=== PATIENT | male | born 1990 | race Caucasian/White ===

== ENCOUNTER 2025-11-02 23:30 | Emergency (ER) | payer OTHER ==
[~2025-11-02] VITALS: Ht 175.2 cm; Wt 81.6 kg
[2025-11-02] MEDS ORDERED: SUCRALFATE 1 GM TAB PO ONE (23:55)
[2025-11-03 00:17] LABS: BASO # 0.0 10*3/uL (0.0-0.1); BASO % 0.4 % (0.0-1.0); EOS # 0.1 10*3/uL (0.0-0.4); EOS % 1.9 % (1.0-4.0); MEAN CELL VOLUME 97.7 fl (80.0-94.0); MEAN CORPUSCULAR HGB 33.0 pg (27.0-31.0); MEAN PLATELET VOLUME 9.5 fl (9.6-12.3); MONO # 0.5 10*3/uL (0.1-1.0); MONO % 9.1 % (3.0-9.0); NEUT # 2.8 10*3/uL (2.3-7.9); NEUT % 53.2 % (47.0-73.0); NUCLEATED RED BLOOD CELL 0.0 % (0.0-0.0); NUCLEATED RED BLOOD CELL 0.0 10*3/uL (0.0-0.0); PLATELET COUNT AUTOMATED 313 10*3/uL (130-400); RED CELL DISTRI WIDTH 13.7 % (0-14.5)
[2025-11-03 00:30] LABS: ACT PARTIAL THROMBO TIME 25.4 SECONDS (20.0-32.1)
[2025-11-03 00:34] LABS: URINE AMPHETAMINES Negative (1000ng/ml); URINE BARBITURATES Negative (200ng/ml); URINE BENZODIAZEPINES Negative (200ng/ml); URINE CANNABINOIDS (THC) Negative (50ng/ml); URINE COCAINE Negative (300ng/ml); URINE METHADONE Negative (300ng/ml); URINE OPIATES Negative (300ng/ml); URINE PHENCYCLIDINE Negative (25ng/ml)
[2025-11-03 00:54] LABS: BUN 10 mg/dl (9-23); ETHYL ALCOHOL 40.9 mg/dl (<3); SGPT/ALT 106 U/L (5-49)
[2025-11-04] MEDS ORDERED: Carafate1 GM PO (08:54)
[2025-11-04] MEDS ORDERED: OMEPRAZOLE40 MG PO (08:54)
== END 2025-11-03 02:01 | disposition left against medical advice (07) ==
LOC: ED 23:30
PROVIDERS: Internal Medicine
DX: K92.0 Hematemesis (principal); Z86.19 Personal history of other infectious and parasitic diseases; Z53.29 Procedure and treatment not carried out because of patient's decision for other reasons; Z79.899 Other long term (current) drug therapy

== ENCOUNTER 2025-11-04 06:37 | Emergency (ER) | payer OTHER ==
[~2025-11-04] VITALS: Ht 175.2 cm; Wt 81.6 kg
[2025-11-04 07:52] LABS: BASO # 0.0 10*3/uL (0.0-0.1); BASO % 0.4 % (0.0-1.0); EOS # 0.1 10*3/uL (0.0-0.4); EOS % 1.9 % (1.0-4.0); MEAN CELL VOLUME 98.5 fl (80.0-94.0); MEAN CORPUSCULAR HGB 33.2 pg (27.0-31.0); MEAN PLATELET VOLUME 9.3 fl (9.6-12.3); MONO # 0.4 10*3/uL (0.1-1.0); MONO % 7.8 % (3.0-9.0); NEUT # 3.9 10*3/uL (2.3-7.9); NEUT % 71.9 % (47.0-73.0); NUCLEATED RED BLOOD CELL 0.0 % (0.0-0.0); NUCLEATED RED BLOOD CELL 0.0 10*3/uL (0.0-0.0); PLATELET COUNT AUTOMATED 288 10*3/uL (130-400); RED CELL DISTRI WIDTH 13.4 % (0-14.5)
[2025-11-04 08:12] LABS: BUN 10 mg/dl (9-23); ETHYL ALCOHOL 3.4 mg/dl (<3); SGPT/ALT 129 U/L (5-49)
[2025-11-04] MEDS ORDERED: OMEPRAZOLE40 MG PO (08:54)
[2025-11-04] MEDS ORDERED: Carafate1 GM PO (08:54)
== END 2025-11-04 09:02 | disposition home or self-care (01) ==
LOC: ED 06:37
PROVIDERS: Emergency Medicine
DX: K29.70 Gastritis, unspecified, without bleeding (principal); F10.10 Alcohol abuse, uncomplicated; Z86.19 Personal history of other infectious and parasitic diseases